=== PATIENT | female | born 1970 | race Caucasian/White ===

== ENCOUNTER 2016-03-31 11:35 | Emergency (ER) | payer OTHER ==
[2016-03-31 12:24] VITALS: BP 114/73
--- NOTE | 2016-03-31 12:46 | UC ---
Neck Pain HPI - HPI Summary HPI Summary: L neck pain worsening for the last 2 weeks. Now having radiation to back and L arm down into 4th and 5th fingers. Denies weakness or loss of coordination. No hx of spinal surgery or problems except for scoliosis. Pt has MS. No recent fevers or weight loss. - History of Current Complaint Chief Complaint: UCUpperExtremity Stated Complaint: NECK PAIN Time Seen by Provider: 03/31/16 12:28 Hx Obtained From: Patient ?: No Mechanism Of Injury: No Known Trauma Timing: Constant Onset/Duration: Gradual Onset, Lasting Weeks Severity: Moderate Location: Discrete At:, Radiates To: - L arm Character: Dull, Aching Aggravating Factors: Movement Alleviating Factors: Nothing Associated Signs & Symptoms: Positive: Paresthesia - Allergies/Home Medications Allergies/Adverse Reactions: Allergies Allergy/AdvReac Type Severity Reaction Status Date / Time No Known Allergies Allergy Verified 11/08/15 15:35 Home Medications: Home Medications Black Cohosh (Cimicifuga [place] [Black Cohosh] 20 mg PO 03/31/16 [History] Levothyroxine Sodium [Synthroid] 100 mcg PO 03/31/16 [History] Venlafaxine EXT RELEASE CAP* [Effexor Xr CAP*] 75 mg PO DAILY 03/31/16 [History Confirmed 03/31/16] PMH/Surg Hx/FS Hx/Imm Hx - Additional Past Medical History Additional PMH: multiple sclerosis Endocrine History Of: Reports: Thyroid Disease - hypothyroidism Denies: Diabetes Cardiovascular History Of: Denies: Hypertension, Pacemaker/ICD, Congestive Heart Failure Respiratory History Of: Denies: Asthma GI/ History Of: Reports: Kidney Stones Denies: Renal Disease Psychological History Of: Reports: Anxiety, Depression Other History Of: Negative For: Anticoagulant Therapy - Surgical History Surgical History: Yes Surgery Procedure, Year, and Place: PARTIAL HYSTER 2003, GB 2002, BREAST AUGMENTATION 2008 - Family History Known Family History: Negative: Renal Disease - Social History Occupation: Employed Full-time - RN Alcohol Use: Rare Substance Use Type: None Smoking Status (MU): Light Every Day Tobacco Smoker Type: Cigarettes Cessation Counseling: Patient Advised to Stop - Immunization History Most Recent Influenza Vaccination: 2012 Most Recent Tetanus Shot: 2011 Most Recent Pneumonia Vaccination: 2012 Review Of Systems Constitutional: Positive: Negative Skin: Positive: Negative Eyes: Positive: Negative ENT: Positive: Negative Respiratory: Positive: Negative Cardiovascular: Positive: Negative Gastrointestinal: Positive: Negative Genitourinary: Positive: Negative Musculoskeletal: Positive: Decreased ROM - neck Neurological: Positive: Paresthesia All Other Systems Reviewed And Are Negative: Yes Physical Exam Triage Information Reviewed: Yes Appearance: Well-Appearing, No Pain Distress, Obese Vital Signs: Initial Vital Signs Temp 97.7 F 03/31/16 12:20 Pulse 82 03/31/16 12:20 Resp 18 03/31/16 12:20 BP 114/73 03/31/16 12:20 Pulse Ox 99 03/31/16 12:20 Vital Signs Reviewed: Yes Eye Exam: Normal Eyes: Positive: Conjunctiva Clear ENT Exam: Normal ENT: Positive: Normal ENT inspection, Hearing grossly normal, Pharynx normal, TMs normal Dental Exam: Normal Neck: Positive: Supple, No Lymphadenopathy, Other: - unable to fully rotate to the L due to pain Respiratory Exam: Normal Respiratory: Positive: Chest non-tender, Lungs clear, Normal breath sounds, No respiratory distress, No accessory muscle use Cardiovascular Exam: Normal Cardiovascular: Positive: RRR, No Murmur Musculoskeletal: Positive: Strength Intact, No Edema, ROM Limited @ - neck Neurological: Positive: Alert, Muscle Tone Normal Psychological Exam: Normal Skin Exam: Normal Neck Pain Course/Dx - Differential Dx/Diagnosis Provider Diagnoses: L cervical radiculopathy Discharge - Discharge Plan Condition: Stable Disposition: HOME Prescriptions: Diazepam TAB(*) [Valium TAB(*)] 5 mg PO BID PRN #10 tab MDD 2 PRN Reason: pain Indomethacin CAP* [Indocin CAP*] 50 mg PO TID PRN #20 cap PRN Reason: Pain Patient Education Materials: Cervical Radiculopathy (ED) Referrals: Woody Mercado [Primary Care Provider] - Additional Instructions: See your primary care provider as soon as you get back from your trip. Persistent or worsening symptoms will probably need investigation with MRI.
--- NOTE | 2016-03-31 13:53 | RAD ---
HISTORY: Left-sided neck pain, left arm pain COMPARISONS: MRI of the cervical spine dated June 21, 2012 TECHNIQUE: Multiple contiguous axial CT scans were obtained of the cervical spine without intravenous contrast, with coronal and sagittal multiplanar reformations. FINDINGS: BRAIN: The visualized brain is unremarkable CENTRAL CANAL: Evaluation of the central canal is limited on CT technique; however, there is no obvious canalicular mass or epidural hemorrhage. ALIGNMENT: There is straightening of the cervical lordosis. VERTEBRAL BODIES: The odontoid process is intact. The atlantoaxial intervals are symmetric. The vertebral bodies are normal in attenuation, without fracture. JOINTS: There is mild osteoarthritis of the uncovertebral and facet joints MUSCULATURE: Unremarkable INTERVERTEBRAL DISCS: There is diffuse loss of intervertebral disc height. AXIAL IMAGES: C2-C3: There is no osseous neural foraminal narrowing or central canal stenosis. C3-C4: There is no osseous neural foraminal narrowing or central canal stenosis. C4-C5: There is no osseous neural foraminal narrowing or central canal stenosis. C5-C6: There is no osseous neural foraminal narrowing or central canal stenosis. C6-C7: There is no osseous neural foraminal narrowing or central canal stenosis. C7-T1: There is no osseous neural foraminal narrowing or central canal stenosis. SOFT TISSUES: The visualized soft tissues of the neck are unremarkable. The prevertebral fat stripe is preserved. OTHER: None. IMPRESSION: 1. STRAIGHTENING CERVICAL LORDOSIS. 2. DEGENERATIVE DISC DISEASE AND OSTEOARTHRITIS. 3. THERE IS NO APPRECIABLE OSSEOUS NEURAL FORAMINAL NARROWING OR CENTRAL CANAL STENOSIS. THE SMALL C5-C6 DISC PROTRUSION NOTED ON PREVIOUS MRI IS NOT WELL EVALUATED ON THE CURRENT CT EXAMINATION.
== END 2016-03-31 14:15 | disposition home or self-care (01) ==
LOC: UCEAST 11:35
DX: M54.12 Radiculopathy, cervical region (principal); E03.9 Hypothyroidism, unspecified; F17.210 Nicotine dependence, cigarettes, uncomplicated
CPT/HCPCS: 72125; 99212; G0463